=== PATIENT | female | born 1995 | race Caucasian/White ===

== ENCOUNTER 2016-12-24 18:40 | Emergency (ER) | payer OTHER ==
[~2016-12-24 18:40] MED LIST: ANAPROX PO; LORTAB 5/500 TA1 TA1 PO; NO MEDICATIONS; NORFLEX100 M1 PO; TYLENOL #3 PO; VICODIN 5/1 TAB 5/50 PO
== END 2016-12-24 21:05 | disposition home or self-care (01) ==
LOC: CED 18:40 → CFTX 18:40
DX: R07.0 Pain in throat (principal); H72.92 Unspecified perforation of tympanic membrane, left ear; F17.200 Nicotine dependence, unspecified, uncomplicated; Z79.899 Other long term (current) drug therapy
CPT/HCPCS: 87651; 96372; 99283; J1885